=== PATIENT | female | born 1965 | race Caucasian/White ===

== ENCOUNTER 2024-01-06 16:25 | Emergency (ER) | payer OTHER, MEDICARE ==
[~2024-01-06] VITALS: Ht 167.6 cm; Wt 74.9 kg
[2024-01-06] MEDS ORDERED: HYDROXYZINE HCL25 MG PO (18:34)
[2024-01-06] MEDS ORDERED: OMEPRAZOLE MAGN20 M1 PO (18:34)
[2024-01-06] MEDS ORDERED: ATORVASTATIN CA40 MG PO (18:35)
[2024-01-06 19:22] VITALS: BP 156/97
== END 2024-01-06 19:22 | disposition home or self-care (01) ==
LOC: ED 16:25
DX: S51.811A Laceration without foreign body of right forearm, initial encounter (principal); W26.0XXA Contact with knife, initial encounter